=== PATIENT | male | born 1980 | race Two or more races ===

== ENCOUNTER → 2018-02-09 | Outpatient (CLI) | payer BC | END | disposition home or self-care (01) | LOC: HKI 09:07 | DX: S86.912A Strain of unspecified muscle(s) and tendon(s) at lower leg level, left leg, initial encounter (principal); X58.XXXA Exposure to other specified factors, initial encounter; Z88.0 Allergy status to penicillin | CPT/HCPCS: 73564; 73564-LT ==

== ENCOUNTER → 2018-03-16 | Outpatient (CLI) | payer BC | END | disposition home or self-care (01) | LOC: HKI 09:18 | DX: M76.52 Patellar tendinitis, left knee (principal); M25.562 Pain in left knee | CPT/HCPCS: Z7500 ==